=== PATIENT | female | born 1990 | race Caucasian/White ===

== ENCOUNTER 2017-02-21 14:34 | Emergency (ER) | payer BC ==
[2017-02-21 16:20] LABS: Hematocrit 39 % (35-47); Hemoglobin 12.8 g/dl (12.0-16.0); Mean Corpuscular HGB Conc 33 g/dl (31-36); Mean Corpuscular Hemoglobin 30 pg (27-31); Mean Corpuscular Volume 89 fL (80-97); Mean Platelet Volume 8 um3 (7.4-10.4); Red Blood Count 4.33 10^6/ul (4.0-5.4); Red Cell Distribution Width 14 % (10.5-15)
[2017-02-21 16:31] LABS: Albumin 4.4 g/dL (3.2-5.2); BUN/Creatinine Ratio 14.3 (8-20); Calcium 9.3 mg/dL (8.6-10.3); EGFR African American 148.1 (>60); EGFR Non-African American 115.1 (>60); Globulin 3.2 g/dL (2-4); Total Bilirubin 0.4 mg/dL (0.2-1.0); Total Protein 7.6 g/dL (6.4-8.9)
[2017-02-21 18:13] LABS: C Reactive Protein 8.67 mg/L (< 5.00)
--- NOTE | 2017-02-21 18:48 | RAD ---
INDICATION: 26-year-old patient. Right flank pain. COMPARISON: None TECHNIQUE: Longitudinal and transverse scans of the kidneys were obtained. FINDINGS: Right kidney: The right kidney is normal in size and echogenicity. No renal masses, calculi, or hydronephrosis is seen. The right kidney measures 13.3 x 4.4 x 6.1 cm. Other: None IMPRESSION: NORMAL RIGHT RENAL SONOGRAM.
--- NOTE | 2017-02-21 18:50 | RAD ---
INDICATION: Early with right-sided pain COMPARISON: Right renal sonogram same date TECHNIQUE: Transabdominal imaging was performed for the purposes of evaluation. The patient declined transvaginal imaging. FINDINGS: There is a single intrauterine gestation with confirmation of movement and cardiac activity. The cardiac activity is documented at 170 bpm. The pole corresponds to a 9 week 1 day gestation. The estimated date of delivery is September 23, 2017. There is no evidence of subchorionic hemorrhage. The left ovary is not identified. The right ovary appears normal measuring 3.4 x 1.8 x 2.3 cm. IMPRESSION: INTRAUTERINE GESTATION AT 9 WEEKS 1 DAY WITH CONFIRMATION OF CARDIAC ACTIVITY.
[2017-02-21 19:01] LABS: Urine Bacteria 2+ (Absent); Urine Bilirubin Negative (Negative); Urine Glucose Negative (Negative); Urine Nitrite Negative (Negative)
[2017-02-21 19:51] VITALS: BP 126/69
--- NOTE | 2017-02-22 00:38 | ED ---
Matias Carrera Salem, scribed for Anival Alvarenga MD on 02/21/17 at 1737 . Abdominal Pain/Female - HPI Summary HPI Summary: Patient is a 26 y/o F who presents to the ED with constant dull and achy RLQ pain since this morning. Pt is approximately 9.5 weeks (LMP on December 18, 2016 and due on September 23, 2016.) She saw her [employer] 5 days ago for her regular checkup and had an US that was negative. Pt called [employer] today for sx and they pointed to her hx of kidney stone. She was able to urinate today. Pt also took Tylenol with little alleviation. Sx is not aggravated or alleviated with anything. - History of Current Complaint Chief Complaint: EDAbdPain Stated Complaint: PAIN IN RT LOWER ABD/9 1/2 WEEKS PREG Time Seen by Provider: 02/21/17 17:17 Hx Obtained From: Patient Onset/Duration: Gradual Onset, Lasting Hours, Still Present Timing: Constant Severity Initially: Moderate Severity Currently: Moderate Pain Intensity: 6 Pain Scale Used: 0-10 Numeric Location: Discrete At: RLQ Radiates: No Character: Dull, Other: - Achy. Aggravating Factor(s): Nothing Alleviating Factor(s): Nothing Associated Signs and Symptoms: Positive: Negative Allergies/Adverse Reactions: Allergies Allergy/AdvReac Type Severity Reaction Status Date / Time Amoxicillin Allergy Hives Verified 02/21/17 17:09 Latex Allergy Hives Verified 02/21/17 17:09 PMH/Surg Hx/FS Hx/Imm Hx Previously Healthy: Yes Infectious Disease History: No Infectious Disease History: Denies: Traveled Outside the [place] in Last 30 Days - Family History Known Family History: Positive: Other - Ovarian CA. - Social History Alcohol Use: None Hx Substance Use: No Substance Use Type: Reports: None Hx Tobacco Use: Yes Smoking Status (MU): Former Smoker Review of Systems Negative: Fever Positive: Abdominal Pain - RLQ. Positive: other - Urination unchanged. All Other Systems Reviewed And Are Negative: Yes Physical Exam Triage Information Reviewed: Yes Vital Signs On Initial Exam: Initial Vitals Temp Pulse Resp BP Pulse Ox 98.1 F 113 18 137/80 100 02/21/17 14:39 02/21/17 14:39 02/21/17 14:39 02/21/17 14:39 02/21/17 14:39 Vital Signs Reviewed: Yes Appearance: Positive: Well-Appearing, No Pain Distress, Obese Skin: Positive: Warm, Skin Color Reflects Adequate Perfusion, Dry Head/Face: Positive: Normal Head/Face Inspection Eyes: Positive: Normal ENT: Positive: Normal ENT inspection Neck: Positive: Supple, Nontender Respiratory/Lung Sounds: Positive: Clear to Auscultation, Breath Sounds Present Cardiovascular: Positive: RRR Abdomen Description: Positive: Soft, Other: - Mild RLQ tenderness. Bowel Sounds: Positive: Present Musculoskeletal: Positive: Normal Neurological: Positive: Normal Psychiatric: Positive: Normal, Affect/Mood Appropriate - [place] Coma Scale Coma Scale Total: 15 Diagnostics - Vital Signs Vital Signs Temp Pulse Resp BP Pulse Ox 02/21/17 17:09 83 99 02/21/17 17:07 125/68 02/21/17 15:59 97.8 F 76 16 138/96 100 02/21/17 14:39 98.1 F 113 18 137/80 100 - Laboratory Lab Results: Lab Results 02/21/17 02/21/17 Range/Units 16:06 16:06 WBC 11.0 H (3.5-10.8) 10^3/ul RBC 4.33 (4.0-5.4) 10^6/ul Hgb 12.8 (12.0-16.0) g/dl Hct 39 (35-47) % MCV 89 (80-97) fL MCH 30 (27-31) pg MCHC 33 (31-36) g/dl RDW 14 (10.5-15) % Plt Count 343 (150-450) 10^3/ul MPV 8 (7.4-10.4) um3 Neut % (Auto) 67.7 (38-83) % Lymph % (Auto) 23.7 L (25-47) % [place] % (Auto) 6.5 (1-9) % Eos % (Auto) 1.3 (0-6) % Baso % (Auto) 0.8 (0-2) % Absolute Neuts (auto) 7.5 (1.5-7.7) 10^3/ul Absolute Lymphs (auto) 2.6 (1.0-4.8) 10^3/ul Absolute Monos (auto) 0.7 (0-0.8) 10^3/ul Absolute Eos (auto) 0.1 (0-0.6) 10^3/ul Absolute Basos (auto) 0.1 (0-0.2) 10^3/ul Absolute Nucleated RBC 0.01 10^3/ul Nucleated RBC % 0 Sodium 133 (133-145) mmol/L Potassium 4.0 (3.5-5.0) mmol/L Chloride 103 (101-111) mmol/L Carbon Dioxide 23 (22-32) mmol/L Anion Gap 7 (2-11) mmol/L BUN 9 (6-24) mg/dL Creatinine 0.63 (0.51-0.95) mg/dL Est GFR ( Amer) 148.1 (>60) Est GFR (Non-Af Amer) 115.1 (>60) BUN/Creatinine Ratio 14.3 (8-20) Glucose 86 (70-100) mg/dL Calcium 9.3 (8.6-10.3) mg/dL Total Bilirubin 0.40 (0.2-1.0) mg/dL AST 13 (13-39) U/L ALT 52 (7-52) U/L Alkaline Phosphatase 52 (34-104) U/L Total Protein 7.6 (6.4-8.9) g/dL Albumin 4.4 (3.2-5.2) g/dL Globulin 3.2 (2-4) g/dL Albumin/Globulin Ratio 1.4 (1-3) Result Diagrams: 02/21/17 16:06 02/21/17 16:06 Lab Statement: Any lab studies that have been ordered have been reviewed, and results considered in the medical decision making process. - Ultrasound No standard instances Ultrasound Interpretation Completed By: Radiologist - RENAL IMPRESSION: NORMAL RIGHT RENAL SONOGRAM. IMPRESSION: INTRAUTERINE GESTATION AT 9 WEEKS 1 DAY WITH CONFIRMATION OF CARDIAC ACTIVITY. Abdominal Pain Fem Course/Dx - Course Course Of Treatment: Ms. Tanner has RLQ pain that is dull with episodes of cramping. It has been going on for hours at this point. Her WBC's were 11, CRP 8 and U/A showed a contaminated picture with a few WBC's, bacteria and squamous dells. U/s of her ovary and baby was fine as was a renal u/s. I'm not sure what has caused her pain which is a bit better now. It could be an early appendicitis, a kidney stone or even an intermittent torsion as well as other causes. I recommended close F/U and I think she is safe to go home tonight. - Diagnoses Provider Diagnoses: Abdominal pain Discharge - Discharge Plan Condition: Stable Disposition: HOME Prescriptions: HYDROcodone/ACETAMIN 5-325 MG* [[place] 5-325 TAB*] 1 tab PO Q6H PRN #20 tab MDD 4 PRN Reason: Pain Patient Education Materials: Abdominal Pain (ED) Referrals: Lorena Galvez MD [Medical Doctor] - Additional Instructions: Please follow up with Dr. Galvez in 2-3 days if sx have not improved. The documentation as recorded by the Matias rosa Salem accurately reflects the service I personally performed and the decisions made by me, Anival Alvarenga MD.
== END 2017-02-21 19:53 | disposition home or self-care (01) ==
LOC: ED 14:34
DX: R10.31 Right lower quadrant pain (principal); Z87.891 Personal history of nicotine dependence
CPT/HCPCS: 36415; 76775; 76801; 80053; 81003; 81015; 84702; 85025; 86140; 87086; 99282

== ENCOUNTER 2017-05-08 21:37 | Emergency (ER) | payer BC, OTHER ==
[2017-05-08 22:39] LABS: Urine Bacteria 1+ (Absent); Urine Bilirubin Negative (Negative); Urine Glucose Negative (Negative); Urine Nitrite Negative (Negative)
--- NOTE | 2017-05-09 00:04 | ED ---
Bobby Carrera Rebecca, scribed for Sebastien Jansen MD on 05/08/17 at 2201 . - HPI Summary HPI Summary: Pt is a 26 y/o F who is 20 weeks who presents to ED c/o abdominal pain for about one hour. Pain is characterized as cramping and pressure and characterized as mild, ranked 1/10. Sx aggravated and alleviated by nothing. Denies vaginal bleeding or discharge. Pt is being followed by a perinatologist in [place] due to her short cervix. - History of Current Complaint Chief Complaint: EDAbdPain Stated Complaint: 20WKS PREG/CRAMPING/PRESSURE Time Seen by Provider: 05/08/17 21:58 Hx Obtained From: Patient Chief Complaint: Pain Onset/Duration: Still Present Current Severity: Mild Pain Intensity: 1 Character: Cramping, Other: - Pressure Aggravating Factors: Nothing Alleviating Factors: Nothing Associated Signs and Symptoms: Positive: Negative. Negative: Vaginal Bleeding or Discharge - Allergies/Home Medications Allergies/Adverse Reactions: Allergies Allergy/AdvReac Type Severity Reaction Status Date / Time Amoxicillin Allergy Hives Verified 02/21/17 17:09 Latex Allergy Hives Verified 02/21/17 17:09 PMH/Surg Hx/FS Hx/Imm Hx Respiratory History: Reports: Hx Seasonal Allergies History: Reports: Hx Kidney Stones, Other Problems/Disorders - Hx PCOS Infectious Disease History: No Infectious Disease History: Denies: Traveled Outside the [place] in Last 30 Days - Family History Known Family History: Positive: Other - Ovarian CA. - Social History Alcohol Use: None Hx Substance Use: No Substance Use Type: Reports: None Hx Tobacco Use: Yes Smoking Status (MU): Former Smoker Review of Systems Positive: Abdominal Pain Positive: other - NEGATIVE: vaginal bleeding. Negative: discharge All Other Systems Reviewed And Are Negative: Yes Physical Exam - Physical Exam Triage Information Reviewed: Yes Vital Signs Reviewed: Yes Appearance: Positive: Well-Appearing, No Pain Distress Skin: Positive: Warm Head/Face: Positive: Normal Head/Face Inspection Eyes: Positive: ALEKSANDER ENT: Positive: Hearing grossly normal Neck: Positive: Supple Respiratory/Lung Sounds: Positive: Clear to Auscultation Cardiovascular: Positive: RRR Abdomen Description: Positive: Nontender, Soft Bowel Sounds: Positive: Present - gravid Musculoskeletal: Positive: Normal Neurological: Positive: Alert, Oriented to Person Place, Time Psychiatric: Positive: Affect/Mood Appropriate Diagnostics - Vital Signs Vital Signs Temp Pulse Resp BP Pulse Ox 05/08/17 21:43 98.5 F 103 16 123/79 100 05/08/17 21:40 97.7 F 103 16 99 - Laboratory Lab Statement: Any lab studies that have been ordered have been reviewed, and results considered in the medical decision making process. Re-Evaluation - Re-Evaluation First Eval Re-Evaluation Time: 00:04 Change: Improved Comment: Discussed D/C plan with the pt. pt placed on monitpr, evauated by L&D nurses Course/Dx - Course Assessment/Plan: Pt is a 26 y/o F who is 20 weeks who presents to ED c/ o abdominal pain for about one hour. Pain is characterized as cramping and pressure and characterized as mild, ranked 1/10. Sx aggravated and alleviated by nothing. Denies vaginal bleeding or discharge. Pt is being followed by a perinatologist in [place] due to her short cervix. There was continuous monitoring while in the ED. UA negative for UTI. Pt will be D/C to home with Dx of abdominal pain during with a follow up with her PCP. She understands and agrees. - Diagnoses Provider Diagnoses: Abdominal pain during Discharge - Discharge Plan Condition: Stable Disposition: HOME Patient Education Materials: Abdominal Pain in (ED) Referrals: Alex HARDY,Jonathan Driver [Primary Care Provider] - 2 Days The documentation as recorded by the Bobby rosa Rebecca accurately reflects the service I personally performed and the decisions made by me, Sebastien Jansen MD.
[2017-05-09 00:13] VITALS: BP 111/65
== END 2017-05-09 00:14 | disposition home or self-care (01) ==
LOC: ED 21:37
DX: O26.892 Other specified pregnancy related conditions, second trimester (principal); Z3A.20 20 weeks gestation of pregnancy
CPT/HCPCS: 81003; 81015; 87086; 99282

== ENCOUNTER → 2017-08-01 00:50 | Emergency (ER) | payer OTHER ==
[2017-08-01 00:57] VITALS: BP 102/57
== END | disposition left against medical advice (07) ==
LOC: ED 00:50
DX: R10.9 Unspecified abdominal pain (principal); Z53.21 Procedure and treatment not carried out due to patient leaving prior to being seen by health care provider

== ENCOUNTER 2018-01-01 20:36 | Emergency (ER) | payer SELFPAY ==
[2018-01-01] MEDS ORDERED: NS 0.9% 1000 ML* 1,000 ML IV ONE (21:24)
[2018-01-01 22:06] LABS: ABS Basophils 0.1 10^3/ul (0-0.2); ABS Eosinophils 0.4 10^3/ul (0-0.6); ABS Lymphocytes 3.1 10^3/ul (1.0-4.8); ABS Monocytes 0.6 10^3/ul (0-0.8); ABS Neutrophils 4.1 10^3/ul (1.5-7.7); ABS Nucleated RBC 0 10^3/ul; Eosinophil % 5.1 % (0-6); Hematocrit 38 % (35-47); Hemoglobin 13.1 g/dl (12.0-16.0); Lymphocyte % 37.1 % (25-47); Mean Corpuscular HGB Conc 35 g/dl (31-36); Mean Corpuscular Hemoglobin 30 pg (27-31); Mean Corpuscular Volume 85 fL (80-97); Mean Platelet Volume 7.7 um3 (7.4-10.4); Nucleated Red Blood Cells % 0.1; Platelet Count 364 10^3/ul (150-450); Red Blood Count 4.44 10^6/ul (4.0-5.4); Red Cell Distribution Width 16 % (10.5-15); White Blood Count 8.3 10^3/ul (3.5-10.8)
[2018-01-01 22:21] LABS: INR 0.84 (0.77-1.02); Urine Appearance Clear; Urine Blood 2+ (Negative); Urine Color Straw; Urine Ketones Negative (Negative); Urine Protein Negative (Negative); Urine Specific Gravity 1.012 (1.010-1.030); Urine Urobilinogen Negative (Negative)
[2018-01-01 22:23] LABS: EGFR Non-African American 99.5 (>60)
[2018-01-01 23:22] VITALS: BP 0/0
--- NOTE | 2018-01-01 23:23 | ED ---
Erna Carrera Gabriel, scribed for Oc Haro on 01/01/18 at 2125 . Abdominal Pain/Female - HPI Summary HPI Summary: This patient is a 27 year old F presenting to [facility] accompanied by her partner with a chief complaint of RLQ that began at 1700 and has been getting worse. The patient rates the pain 6/10 in severity. Patient reports vaginal bleeding. Patient denies n/v and hematuria. - History of Current Complaint Chief Complaint: EDAbdPain Stated Complaint: ABD PAIN Time Seen by Provider: 01/01/18 21:18 Hx Obtained From: Patient Onset/Duration: Lasting Days, Still Present Timing: Constant Severity Initially: Moderate Severity Currently: Moderate Pain Intensity: 6 Pain Scale Used: 0-10 Numeric Location: Discrete At: RLQ Radiates: No Associated Signs and Symptoms: Positive: Vaginal Bleeding. Negative: Nausea, Vomiting Allergies/Adverse Reactions: Allergies Allergy/AdvReac Type Severity Reaction Status Date / Time amoxicillin Allergy Hives Verified 01/01/18 20:41 latex Allergy Hives Verified 01/01/18 20:41 PMH/Surg Hx/FS Hx/Imm Hx Respiratory History: Reports: Hx Seasonal Allergies History: Reports: Hx Kidney Stones, Other Problems/Disorders - Hx PCOS Infectious Disease History: No Infectious Disease History: Denies: Traveled Outside the [place] in Last 30 Days - Family History Known Family History: Positive: Other - Ovarian CA. - Social History Lives: With Family Alcohol Use: None Hx Substance Use: No Substance Use Type: Reports: None Hx Tobacco Use: Yes Smoking Status (MU): Former Smoker Review of Systems Positive: Abdominal Pain - RLQ . Negative: Vomiting, Nausea Genitourinary: Other - some vaginal bleeding Negative: hematuria All Other Systems Reviewed And Are Negative: Yes Physical Exam - Summary Physical Exam Summary: Appearance: Well appearing, no pain distress Skin: warm, dry, reflects adequate perfusion Head/face: normal Eyes: EOMI, ALEKSANDER ENT: normal Neck: supple, non-tender Respiratory: CTA, breath sounds present Cardiovascular: RRR, pulses symmetrical Abdomen: TTP in RLQ Bowel: present Musculoskeletal: normal, strength/ROM intact Neuro: normal, sensory motor intact, A&Ox3 Triage Information Reviewed: Yes Vital Signs On Initial Exam: Initial Vitals Temp Pulse Resp BP Pulse Ox 97.0 F 103 16 137/87 99 01/01/18 20:38 01/01/18 20:38 01/01/18 20:38 01/01/18 20:38 01/01/18 20:38 Vital Signs Reviewed: Yes Diagnostics - Vital Signs Vital Signs Temp Pulse Resp BP Pulse Ox 01/01/18 20:38 97.0 F 103 16 137/87 99 - Laboratory Lab Results: Lab Results 01/01/18 01/01/18 01/01/18 Range/Units 21:46 21:46 21:46 WBC 8.3 (3.5-10.8) 10^3/ul RBC 4.44 (4.0-5.4) 10^6/ul Hgb 13.1 (12.0-16.0) g/dl Hct 38 (35-47) % MCV 85 (80-97) fL MCH 30 (27-31) pg MCHC 35 (31-36) g/dl RDW 16 H (10.5-15) % Plt Count 364 (150-450) 10^3/ul MPV 7.7 (7.4-10.4) um3 Neut % (Auto) 49.1 (38-83) % Lymph % (Auto) 37.1 (25-47) % [place] % (Auto) 7.7 H (0-7) % Eos % (Auto) 5.1 (0-6) % Baso % (Auto) 1.0 (0-2) % Absolute Neuts (auto) 4.1 (1.5-7.7) 10^3/ul Absolute Lymphs (auto) 3.1 (1.0-4.8) 10^3/ul Absolute Monos (auto) 0.6 (0-0.8) 10^3/ul Absolute Eos (auto) 0.4 (0-0.6) 10^3/ul Absolute Basos (auto) 0.1 (0-0.2) 10^3/ul Absolute Nucleated RBC 0 10^3/ul Nucleated RBC % 0.1 INR (Anticoag Therapy) 0.84 (0.77-1.02) APTT 32.7 (26.0-36.3) seconds Sodium 141 (139-145) mmol/L Potassium 4.1 (3.5-5.0) mmol/L Chloride 106 (101-111) mmol/L Carbon Dioxide 27 (22-32) mmol/L Anion Gap 8 (2-11) mmol/L BUN 9 (6-24) mg/dL Creatinine 0.71 (0.51-0.95) mg/dL Est GFR ( Amer) 128.0 (>60) Est GFR (Non-Af Amer) 99.5 (>60) BUN/Creatinine Ratio 12.7 (8-20) Glucose 91 (70-100) mg/dL Lactic Acid (0.5-2.0) mmol/L Calcium 9.7 (8.6-10.3) mg/dL Total Bilirubin 0.20 (0.2-1.0) mg/dL AST 10 L (13-39) U/L ALT 30 (7-52) U/L Alkaline Phosphatase 63 (34-104) U/L Total Protein 7.7 (6.4-8.9) g/dL Albumin 4.6 (3.2-5.2) g/dL Globulin 3.1 (2-4) g/dL Albumin/Globulin Ratio 1.5 (1-3) Lipase 37 (11.0-82.0) U/L Beta HCG, Quant < 0.60 mIU/mL Urine Color Urine Appearance Urine pH (5-9) Ur Specific [place] (1.010-1.030) Urine Protein (Negative) Urine Ketones (Negative) Urine Blood (Negative) Urine Nitrate (Negative) Urine Bilirubin (Negative) Urine Urobilinogen (Negative) Ur Leukocyte Esterase (Negative) Urine WBC (Auto) (Absent) Urine RBC (Auto) (Absent) Urine Bacteria (Absent) Urine Glucose (Negative) 01/01/18 01/01/18 Range/Units 21:46 21:46 WBC (3.5-10.8) 10^3/ul RBC (4.0-5.4) 10^6/ul Hgb (12.0-16.0) g/dl Hct (35-47) % MCV (80-97) fL MCH (27-31) pg MCHC (31-36) g/dl RDW (10.5-15) % Plt Count (150-450) 10^3/ul MPV (7.4-10.4) um3 Neut % (Auto) (38-83) % Lymph % (Auto) (25-47) % [place] % (Auto) (0-7) % Eos % (Auto) (0-6) % Baso % (Auto) (0-2) % Absolute Neuts (auto) (1.5-7.7) 10^3/ul Absolute Lymphs (auto) (1.0-4.8) 10^3/ul Absolute Monos (auto) (0-0.8) 10^3/ul Absolute Eos (auto) (0-0.6) 10^3/ul Absolute Basos (auto) (0-0.2) 10^3/ul Absolute Nucleated RBC 10^3/ul Nucleated RBC % INR (Anticoag Therapy) (0.77-1.02) APTT (26.0-36.3) seconds Sodium (139-145) mmol/L Potassium (3.5-5.0) mmol/L Chloride (101-111) mmol/L Carbon Dioxide (22-32) mmol/L Anion Gap (2-11) mmol/L BUN (6-24) mg/dL Creatinine (0.51-0.95) mg/dL Est GFR ( Amer) (>60) Est GFR (Non-Af Amer) (>60) BUN/Creatinine Ratio (8-20) Glucose (70-100) mg/dL Lactic Acid 1.2 (0.5-2.0) mmol/L Calcium (8.6-10.3) mg/dL Total Bilirubin (0.2-1.0) mg/dL AST (13-39) U/L ALT (7-52) U/L Alkaline Phosphatase (34-104) U/L Total Protein (6.4-8.9) g/dL Albumin (3.2-5.2) g/dL Globulin (2-4) g/dL Albumin/Globulin Ratio (1-3) Lipase (11.0-82.0) U/L Beta HCG, Quant mIU/mL Urine Color Straw Urine Appearance Clear Urine pH 6.0 (5-9) Ur Specific [place] 1.012 (1.010-1.030) Urine Protein Negative (Negative) Urine Ketones Negative (Negative) Urine Blood 2+ A (Negative) Urine Nitrate Negative (Negative) Urine Bilirubin Negative (Negative) Urine Urobilinogen Negative (Negative) Ur Leukocyte Esterase Negative (Negative) Urine WBC (Auto) Trace(0-5/hpf) (Absent) Urine RBC (Auto) 3+(>10/hpf) A (Absent) Urine Bacteria 1+ A (Absent) Urine Glucose Negative (Negative) Result Diagrams: 01/01/18 21:46 01/01/18 21:46 Lab Statement: Any lab studies that have been ordered have been reviewed, and results considered in the medical decision making process. Re-Evaluation - Re-Evaluation First Eval Re-Evaluation Time: 22:38 Change: Worse Comment: Pt is refusing treatment and would like to sign out AMA. Abdominal Pain Fem Course/Dx - Course Course Of Treatment: This patient is a 27 year old F presenting to [facility] accompanied by her partner with a chief complaint of RLQ that began at 1700 and has been getting worse. The patient rates the pain 6/10 in severity. Patient reports vaginal bleeding. Patient denies n/v and hematuria. The patient refused IV access and all imagining. She would like to leave and will sign out AMA. She was advised to return to the ED if symptoms get worse. Dx abd pain r/ o appendicitis. Blood work and UA obtained. Patient will sign out AMA. - Diagnoses Differential Diagnosis: Positive: Appendicitis, Diverticulitis, , Renal Colic, Urinary Tract Infection Provider Diagnoses: Left against medical advice, Abdominal pain Discharge - Sign-Out/Discharge Documenting (check all that apply): Discharge/Admit/Transfer - AMA - Discharge Plan Condition: Fair Disposition: AGAINST MEDICAL ADVICE Referrals: Alex HARDY,Jonathan Driver [Primary Care Provider] - - Billing Disposition and Condition Condition: FAIR Disposition: AMA The documentation as recorded by the Erna rosa Gabriel accurately reflects the service I personally performed and the decisions made by , Oc Haro.
== END 2018-01-01 23:22 | disposition left against medical advice (07) ==
LOC: ED 20:36
DX: R10.31 Right lower quadrant pain (principal); Z87.891 Personal history of nicotine dependence; N93.9 Abnormal uterine and vaginal bleeding, unspecified; Z53.21 Procedure and treatment not carried out due to patient leaving prior to being seen by health care provider
CPT/HCPCS: 36415; 80053; 81003; 81015; 83605; 83690; 84702; 85025; 85610; 85730; 87086; 99283

== ENCOUNTER 2019-04-07 20:55 | Emergency (ER) | payer BC ==
[~2019-04-07 20:55] MED LIST: Thiamine IV 100 MG in NS 0.9% 50 ML Q24H IV ONE
[2019-04-07] MEDS ORDERED: NS 0.9% 1000 ML** 2,000 ML IV ONE (21:21)
[2019-04-07] MEDS ORDERED: Thiamine INJ* 100 MG/ML 2 ML VIAL IV ONE (21:21)
[2019-04-07] MEDS ORDERED: Ondansetron INJ* 2 MG/ML VIAL IV ONE (21:22)
--- NOTE | 2019-04-07 21:24 | ED ---
GI/ HPI - HPI Summary HPI Summary: This patient is a 28 year old F presenting to ED with a chief complaint of vomiting since 24 hours ago. Patient is 7 weeks and called her OB today who recommended she come here. Earlier in the , the patient reports only having nausea. Now the patient is vomiting and dizzy. She denies abdominal pain, diarrhea, contact to sick people, and eating bad food. This is her second , and she had similar morning sickness last time. Patient took Diclegis during her last , which helped, and her OB has now given her a new prescription. The patient rates the pain 0/10 in severity. Symptoms aggravated by nothing. Symptoms alleviated by nothing. - History of Current Complaint Chief Complaint: EDNauseaVomitDiarrh Time Seen by Provider: 04/07/19 21:17 Stated Complaint: NAUSEOUS AND LIGHT HEADED PER PT Hx Obtained From: Patient Onset/Duration: Started Hours Ago - 24 hours, Still Present Timing: Lasting Days - 24 hours Severity: Moderate Current Severity: None Pain Intensity: 0 Associated Signs and Symptoms: Positive: Dizziness, Nausea, Vomiting. Negative : Diarrhea, Abdominal Pain Aggravating Factor(s): Nothing Alleviating Factor(s): Nothing - Allergy/Home Medications Allergies/Adverse Reactions: Allergies Allergy/AdvReac Type Severity Reaction Status Date / Time amoxicillin Allergy Hives Verified 04/07/19 21:41 latex Allergy Hives Verified 04/07/19 21:41 Home Medications: Home Medications Progesterone 1 tab PO TID 04/07/19 [History Confirmed 04/07/19] PMH/Surg Hx/FS Hx/Imm Hx Endocrine/Hematology History: Reports: Hx Anemia Respiratory History: Reports: Hx Seasonal Allergies History: Reports: Hx Kidney Stones, Other Problems/Disorders - Hx PCOS Musculoskeletal History: Reports: Other Musculoskeletal History - L4-L5 disc bulge - Surgical History Surgery Procedure, Year, and Place: Dilation and curettage of uterus (11/2016). [place] revision cervix w preg, vag apprch (05/13/2017). Tonsillectomy Infectious Disease History: No Infectious Disease History: Denies: Traveled Outside the [place] in Last 30 Days - Family History Known Family History: Positive: Other - Ovarian CA. - Social History Alcohol Use: None Hx Substance Use: No Substance Use Type: Reports: None Hx Tobacco Use: Yes Smoking Status (MU): Former Smoker Review of Systems Positive: Vomiting, Nausea. Negative: Abdominal Pain, Diarrhea Neurological: Other - Dizziness All Other Systems Reviewed And Are Negative: Yes Physical Exam - Summary Physical Exam Summary: Appearance: Well-appearing, Well-nourished, lying in bed comfortable Skin: Warm, dry, no obvious rash Eyes: sclera anicteric, no conjunctival pallor ENT: mucous membranes moist Neck: deferred Respiratory: No signs of respiratory distress Cardiovascular: Appears well perfused, pulses are nml Abdomen: deferred Musculoskeletal: Moving all 4 extremities without obvious discomfort Neurological: Awake and alert, mentation is normal, speech is fluent and appropriate Psychiatric: affect is normal, does not appear anxious or depressed Triage Information Reviewed: Yes Vital Signs On Initial Exam: Initial Vitals Temp Pulse Resp BP Pulse Ox 97.9 F 85 18 140/87 98 04/07/19 20:56 04/07/19 20:56 04/07/19 20:56 04/07/19 20:56 04/07/19 20:56 Vital Signs Reviewed: Yes Diagnostics - Vital Signs Vital Signs Temp Pulse Resp BP Pulse Ox 04/07/19 20:56 97.9 F 85 18 140/87 98 - Laboratory Result Diagrams: 04/07/19 21:27 04/07/19 21:27 Lab Statement: Any lab studies that have been ordered have been reviewed, and results considered in the medical decision making process. GIGU Course/Dx - Course Course Of Treatment: This patient is a 28 year old F presenting to ED with a chief complaint of vomiting since 24 hours ago. Patient is 7 weeks and called her OB today who recommended she come here. In the ED course, patient received fluids, Zofran, and Vitamin B. Blood work revealed WBC 11.4, MCH 32, sodium 134. UA unremarkable. Patient will be discharged w dx of hyperemesis gravidarum and mild dehydration. Patient understands and agrees with this plan. - Diagnoses Provider Diagnoses: Hyperemesis gravidarum, Mild dehydration Discharge - Sign-Out/Discharge Documenting (check all that apply): Patient Departure - Discharge Patient Received Moderate/Deep Sedation with Procedure: No - Discharge Plan Condition: Improved Disposition: HOME Patient Education Materials: Hyperemesis Gravidarum (ED) Referrals: Alex HARDY,Jonathan Driver [Primary Care Provider] - Additional Instructions: Go ahead and fill the diclegis prescription and start taking that. Dietary changes can be helpful as well. - Billing Disposition and Condition Condition: IMPROVED Disposition: Home - Attestation Statements Document Initiated by Charlotte: Yes Documenting Scribe: Mikey Castanon Provider For Whom Charlotte is Documenting (Include Credential): Anival Crowe MD Scribe Attestation: Mikey Carrera, scribed for Anival Crowe MD on 04/08/19 at 0610. Scribe Documentation Reviewed: Yes Provider Attestation: The documentation as recorded by the Mikey rosa accurately reflects the service I personally performed and the decisions made by me, Anival Crowe MD Status of Scribe Document: Viewed
[2019-04-07 21:36] LABS: ABS Basophils 0.1 10^3/ul (0-0.2); ABS Eosinophils 0.2 10^3/ul (0-0.6); ABS Lymphocytes 2.5 10^3/ul (1.0-4.8); ABS Monocytes 0.8 10^3/ul (0-0.8); ABS Neutrophils 7.7 10^3/ul (1.5-7.7); Eosinophil % 2.2 %; Hematocrit 39 % (35-47); Hemoglobin 13.5 g/dL (12.0-16.0); Lymphocyte % 22.3 %; Mean Corpuscular HGB Conc 35 g/dL (31-36); Mean Corpuscular Hemoglobin 32 pg (27-31); Mean Corpuscular Volume 90 fL (80-97); Mean Platelet Volume 7.4 fL (7.4-10.4); Platelet Count 346 10^3/uL (150-450); Red Blood Count 4.28 10^6 /uL (3.70-4.87); Red Cell Distribution Width 14 % (10-15); White Blood Count 11.4 10^3/uL (3.5-10.8)
[2019-04-07 21:51] LABS: Urine Appearance Clear; Urine Bilirubin Negative (Negative); Urine Blood Negative (Negative); Urine Color Yellow; Urine Glucose Negative (Negative); Urine Ketones Negative (Negative); Urine Nitrite Negative (Negative); Urine Protein Negative (Negative); Urine Specific Gravity 1.025 (1.010-1.030); Urine Urobilinogen Negative (Negative)
[2019-04-07 21:52] LABS: BUN/Creatinine Ratio 12.3 (8-20); Calcium 9.1 mg/dL (8.6-10.3); EGFR African American 102.6 (>60); EGFR Non-African American 84.8 (>60); Magnesium 2.2 mg/dL (1.9-2.7); Potassium 3.9 mmol/L (3.5-5.0)
[2019-04-08 01:05] VITALS: BP 119/73
== END 2019-04-08 01:09 | disposition home or self-care (01) ==
LOC: ED 20:55
DX: O21.0 Mild hyperemesis gravidarum (principal); E86.0 Dehydration; Z3A.01 Less than 8 weeks gestation of pregnancy; Z88.0 Allergy status to penicillin; Z87.891 Personal history of nicotine dependence; Z91.040 Latex allergy status
CPT/HCPCS: 36415; 80048; 81003; 83735; 85025; 96361; 96365; 96366; 96375; 99284; J2405; J3411

== ENCOUNTER 2019-05-21 18:32 | Emergency (ER) | payer BC, OTHER ==
[2019-05-21] MEDS ORDERED: NS 0.9% 1000 ML** 2,000 ML IV ONE (21:14)
[2019-05-21] MEDS ORDERED: Metoclopramide IV* 5 MG/ML 2 ML VIAL IV ONE (21:15)
[2019-05-21 21:33] LABS: ABS Basophils 0.1 10^3/ul (0-0.2); ABS Eosinophils 0.1 10^3/ul (0-0.6); ABS Lymphocytes 2.1 10^3/ul (1.0-4.8); ABS Monocytes 0.5 10^3/ul (0-0.8); ABS Neutrophils 6.9 10^3/ul (1.5-7.7); Eosinophil % 1.5 %; Hematocrit 34 % (35-47); Hemoglobin 12.2 g/dL (12.0-16.0); Lymphocyte % 21.3 %; Mean Corpuscular HGB Conc 35 g/dL (31-36); Mean Corpuscular Hemoglobin 32 pg (27-31); Mean Corpuscular Volume 90 fL (80-97); Mean Platelet Volume 7.4 fL (7.4-10.4); Platelet Count 331 10^3/uL (150-450); Red Blood Count 3.81 10^6 /uL (3.70-4.87); Red Cell Distribution Width 14 % (10-15); White Blood Count 9.7 10^3/uL (3.5-10.8)
[2019-05-21 21:55] LABS: Urine Appearance Cloudy; Urine Bacteria 1+ (Absent); Urine Bilirubin Negative (Negative); Urine Blood 1+ (Negative); Urine Color Yellow; Urine Glucose Negative (Negative); Urine Ketones Negative (Negative); Urine Nitrite Negative (Negative); Urine Protein Negative (Negative); Urine Red Blood Cell 2+(6-10/hpf) (Absent); Urine Specific Gravity 1.019 (1.010-1.030); Urine Squamous Epithelial Cell Present (Absent); Urine Urobilinogen Negative (Negative); Urine White Blood Cell Trace(0-5/hpf) (Absent)
[2019-05-21 22:01] LABS: Albumin 4.2 g/dL (3.2-5.2); Albumin/Globulin Ratio 1.5 (1-3); Calcium 9.1 mg/dL (8.6-10.3); Globulin 2.8 g/dL (2-4); Potassium 3.6 mmol/L (3.5-5.0); Total Bilirubin 0.3 mg/dL (0.2-1.0)
--- NOTE | 2019-05-21 22:02 | ED ---
GI/ HPI - HPI Summary HPI Summary: Patient is a 28 y/o F who is 14 weeks who presents to [facility] with complaints of hyperemesis and abdominal cramping. She reports similar Sx with previous pregnancies and states that her present episode has been more severe than previous ones. She has been unable to keep any food down despite taking zofran. Urinary Sx are denied. On triage, pain is rated 4/10, nothing is noted to aggravate/alleviate Sx. Home medications and allergies are reviewed. - History of Current Complaint Chief Complaint: EDNauseaVomitDiarrh Time Seen by Provider: 05/21/19 21:15 Stated Complaint: CANT KEEP FOOD IN PER PT Hx Obtained From: Patient Onset/Duration: Still Present Timing: Constant Current Severity: Moderate Pain Intensity: 4 Pain Characteristics: Cramping Associated Signs and Symptoms: Positive: Vomiting, Abdominal Pain, Other: - no urinary Sx Aggravating Factor(s): Nothing Alleviating Factor(s): Nothing - Allergy/Home Medications Allergies/Adverse Reactions: Allergies Allergy/AdvReac Type Severity Reaction Status Date / Time amoxicillin Allergy Hives Verified 05/21/19 18:54 latex Allergy Hives Verified 05/21/19 18:54 zinc oxide Allergy Hives Verified 05/21/19 18:54 Home Medications: Home Medications Progesterone CAP (NF) [Prometrium (NF)] 200 mg PO TID 05/21/19 [History Confirmed 05/21/19] PMH/Surg Hx/FS Hx/Imm Hx Endocrine/Hematology History: Reports: Hx Anemia Respiratory History: Reports: Hx Seasonal Allergies History: Reports: Hx Kidney Stones, Other Problems/Disorders - Hx PCOS Musculoskeletal History: Reports: Other Musculoskeletal History - L4-L5 disc bulge - Surgical History Surgery Procedure, Year, and Place: Dilation and curettage of uterus (11/2016). [place] revision cervix w preg, vag apprch (05/13/2017). Tonsillectomy Infectious Disease History: No Infectious Disease History: Denies: Traveled Outside the [place] in Last 30 Days - Family History Known Family History: Positive: Other - Ovarian CA. - Social History Alcohol Use: None Hx Substance Use: No Substance Use Type: Reports: None Hx Tobacco Use: Yes Smoking Status (MU): Former Smoker Review of Systems Positive: Abdominal Pain - cramping , Vomiting Positive: no symptoms reported - no urinary Sx reported All Other Systems Reviewed And Are Negative: Yes Physical Exam - Summary Physical Exam Summary: Appearance: Well-appearing, Well-nourished, lying in bed comfortably Skin: Warm, dry, no obvious rash Eyes: sclera anicteric, no conjunctival pallor ENT: mucous membranes moist, pharynx appears normal Neck: Supple, nontender Respiratory: Clear to auscultation, no signs of respiratory distress Cardiovascular: Normal S1, S2. No murmurs. Normal distal pulses in tibial and radial bilaterally. Abdomen: Soft, nontender, normal active bowel sounds present Musculoskeletal: Normal, Strength/ROM Intact Neurological: A&Ox3, awake and alert, mentation is normal, speech is fluent and appropriate Psychiatric: affect is normal, does not appear anxious or depressed Triage Information Reviewed: Yes Vital Signs On Initial Exam: Initial Vitals Temp Pulse Resp BP Pulse Ox 98.9 F 96 18 134/83 99 05/21/19 18:51 05/21/19 18:51 05/21/19 18:51 05/21/19 18:51 05/21/19 18:51 Vital Signs Reviewed: Yes Procedures - Sedation Patient Received Moderate/Deep Sedation with Procedure: No Diagnostics - Vital Signs Vital Signs Temp Pulse Resp BP Pulse Ox 05/21/19 18:51 98.9 F 96 18 134/83 99 - Laboratory Lab Results: Lab Results 05/21/19 Range/Units 21:27 WBC 9.7 (3.5-10.8) 10^3/uL RBC 3.81 (3.70-4.87) 10^6 /uL Hgb 12.2 (12.0-16.0) g/dL Hct 34 L (35-47) % MCV 90 (80-97) fL MCH 32 H (27-31) pg MCHC 35 (31-36) g/dL RDW 14 (10-15) % Plt Count 331 (150-450) 10^3/uL MPV 7.4 (7.4-10.4) fL Neut % (Auto) 71.0 % Lymph % (Auto) 21.3 % [place] % (Auto) 5.4 % Eos % (Auto) 1.5 % Baso % (Auto) 0.8 % Absolute Neuts (auto) 6.9 (1.5-7.7) 10^3/ul Absolute Lymphs (auto) 2.1 (1.0-4.8) 10^3/ul Absolute Monos (auto) 0.5 (0-0.8) 10^3/ul Absolute Eos (auto) 0.1 (0-0.6) 10^3/ul Absolute Basos (auto) 0.1 (0-0.2) 10^3/ul Absolute Nucleated RBC 0.0 10^3/ul Nucleated RBC % 0.0 Result Diagrams: 05/21/19 21:27 05/21/19 21:27 Lab Statement: Any lab studies that have been ordered have been reviewed, and results considered in the medical decision making process. GIGU Course/Dx - Course Course Of Treatment: Patient is a 28 y/o F who is 14 weeks who presents to [facility] with complaints of hyperemesis and abdominal cramping. She reports similar Sx with previous pregnancies and states that her present episode has been more severe than previous ones. She has been unable to keep any food down despite taking zofran. Urinary Sx are denied. Physical exam was unremarkable. Bloodwork was obtained. Abnormal values include carbon dioxde 21, AST 6. UA showed 1+ blood, trace WBC, 2+ RBC, present squamous epith cells, 1+ bacteria. During ED course, patient received fluids and reglan 10 mg IV. Patient reported improvement in Sx after medications. She was discharged to home with prescription for Reglan and OB follow up. - Diagnoses Provider Diagnoses: Hyperemesis gravidarum Discharge ED - Sign-Out/Discharge Documenting (check all that apply): Patient Departure - discharge Patient Received Moderate/Deep Sedation with Procedure: No - Discharge Plan Condition: Improved Disposition: HOME Prescriptions: Metoclopramide TAB* [Reglan TAB*] 10 mg PO Q6H #20 tab Patient Education Materials: Hyperemesis Gravidarum (ED) Referrals: Alex HARDY,Jonathan Driver [Primary Care Provider] - Additional Instructions: Contact your OB for followup. Follow the instructions for dietary management, but you can also take the reglan if needed. - Billing Disposition and Condition Condition: IMPROVED Disposition: Home - Attestation Statements Document Initiated by Scribe: Yes Documenting Scribe: MICHELLE CHAPA Provider For Whom Scribe is Documenting (Include Credential): LAUREN LAL MD Scribe Attestation: IMICHELLE, scribed for LAUREN LAL MD on 07/11/19 at 1843. Scribe Documentation Reviewed: Yes Provider Attestation: The documentation as recorded by the yahiribeMICHELLE accurately reflects the service I personally performed and the decisions made by me, LAUREN LAL MD Status of Scribe Document: Viewed
[2019-05-21 22:23] LABS: EGFR African American 145.1 (>60); EGFR Non-African American 119.9 (>60)
[2019-05-22 00:16] VITALS: BP 116/74
== END 2019-05-22 00:14 | disposition home or self-care (01) ==
LOC: ED 18:32
DX: O21.0 Mild hyperemesis gravidarum (principal); Z3A.14 14 weeks gestation of pregnancy; R10.9 Unspecified abdominal pain; Z87.891 Personal history of nicotine dependence; Z87.442 Personal history of urinary calculi
CPT/HCPCS: 36415; 80053; 81003; 81015; 85025; 87086; 99282; J2765

== ENCOUNTER 2019-10-16 21:02 | Emergency (ER) | payer BC, OTHER ==
[2019-10-16] MEDS ORDERED: NS 0.9% 1000 ML** 1,000 ML IV ONE (21:37)
--- NOTE | 2019-10-16 21:44 | ED ---
Abdominal Pain/Female - HPI Summary HPI Summary: The patient is a 28-year-old female presenting to [facility] accompanied by with a chief complaint of RUQ pain onset this afternoon. She is currently 35 weeks gravid, and she notes a history of gallstones with her first ( A0). Her current pain is similar to previous episode. She has an incompetent cervix, but the has otherwise been uncomplicated. The pain , which is currently rated 8/10 in severity, radiates into the back and down the right side of the abdomen. She endorses nausea without vomiting, and she denies fever. No previous abdominal surgery. No liver issues. Her FUMIGATOR AND STERILIZER is aware she is here. Past medical history significant for anemia, seasonal allergies, kidney stones. Former smoker, no EtOH, no substance use. Medications reviewed. Allergies noted. - History of Current Complaint Chief Complaint: EDOBProblems Stated Complaint: ABD PAIN PER PT Time Seen by Provider: 10/16/19 21:28 Hx Obtained From: Patient Onset/Duration: Sudden Onset, Lasting Hours, Still Present Timing: Constant Severity Initially: Moderate Severity Currently: Severe Pain Intensity: 8 Pain Scale Used: 0-10 Numeric Location: Discrete At: RUQ Radiates: Yes Radiates to: Back, Other - along right side of abdomen Character: Sharp Aggravating Factor(s): Nothing Alleviating Factor(s): Nothing Associated Signs and Symptoms: Positive: Nausea. Negative: Fever, Vomiting Allergies/Adverse Reactions: Allergies Allergy/AdvReac Type Severity Reaction Status Date / Time amoxicillin Allergy Hives Verified 05/21/19 18:54 latex Allergy Rash Verified 10/05/19 14:29 Penicillins Allergy Hives Verified 10/05/19 14:29 zinc oxide Allergy Hives Verified 05/21/19 18:54 PMH/Surg Hx/FS Hx/Imm Hx Endocrine/Hematology History: Reports: Hx Anemia Respiratory History: Reports: Hx Seasonal Allergies Denies: Hx Asthma GI History: Reports: Hx Gall Bladder Disease - gallstones with first History: Reports: Hx Kidney Stones, Other Problems/Disorders - hx kidney stones Musculoskeletal History: Reports: Other Musculoskeletal History - L4-L5 disc bulge - Surgical History Surgical History: Yes Surgery Procedure, Year, and Place: Dilation and curettage of uterus (11/2016). [place] revision cervix w preg, vag apprch (05/13/2017). Tonsillectomy Infectious Disease History: No Infectious Disease History: Denies: Traveled Outside the [place] in Last 30 Days - Family History Known Family History: Positive: Other - Ovarian CA. - Social History Alcohol Use: None Hx Substance Use: No Substance Use Type: Reports: None Hx Tobacco Use: Yes Smoking Status (MU): Former Smoker Type: Cigarettes Have You Smoked in the Last Year: No Review of Systems Negative: Fever Positive: Abdominal Pain - RUQ, Nausea. Negative: Vomiting All Other Systems Reviewed And Are Negative: Yes Physical Exam - Summary Physical Exam Summary: Constitutional: Well-developed, Well-nourished, Alert. (-) Distressed Skin: Warm, Dry HENT: Normocephalic; Atraumatic Eyes: Conjunctiva normal Neck: Musculoskeletal ROM normal neck. (-) JVD, (-) Stridor, (-) Tracheal deviation Cardio: Rhythm regular, rate normal, Heart sounds normal; Intact distal pulses; The pedal pulses are 2+ and symmetric. Radial pulses are 2+ and symmetric. (-) Murmur Pulmonary/Chest wall: Effort normal. (-) Respiratory distress, (-) Wheezes, (-) Rales Abd: Soft, (+) RUQ tenderness, Gravid, (-) Distension, (-) Guarding, (-) Rebound Musculoskeletal: (-) Edema Lymph: (-) Cervical adenopathy Neuro: Alert, Oriented x3 Psych: Mood and affect Normal Triage Information Reviewed: Yes Vital Signs On Initial Exam: Initial Vitals Temp Pulse Resp BP Pulse Ox 98.0 F 82 18 137/79 98 10/16/19 21:04 10/16/19 21:04 10/16/19 21:04 10/16/19 21:04 10/16/19 21:04 Vital Signs Reviewed: Yes Procedures - Sedation Patient Received Moderate/Deep Sedation with Procedure: No Diagnostics - Vital Signs Vital Signs Temp Pulse Resp BP Pulse Ox 10/16/19 21:04 98.0 F 82 18 137/79 98 - Laboratory Result Diagrams: 10/16/19 21:43 10/16/19 21:43 Lab Statement: Any lab studies that have been ordered have been reviewed, and results considered in the medical decision making process. Abdominal Pain Fem Course/Dx - Course Course Of Treatment: 28 y/o female who is 35 weeks gravid ( A0) presenting with RUQ pain radiating into the back and along the right side of the abdomen tonight, with history of gallstones during first with similar presentation. She endorses nausea without vomiting, fever. Incompetent cervix but otherwise normal . Physical exam reveals soft, gravid abdomen with RUQ tenderness. IV access obtained. Patient administered fluids. Blood work reveals slight anemia, AST of 7, and alkaline phosphatase of 109. The patient is a sign-out from Dr. Saul Alexander DO, to Dr. Cliff Serna MD, at change of shift at 2200 on 10/16/19, pending HR, Gallbladder US, and disposition. - Diagnoses Provider Diagnoses: RUQ pain Discharge ED - Sign-Out/Discharge Documenting (check all that apply): Sign-Out Patient Signing out patient TO: Cliff Serna - Patient is a sign-out to Dr. Cliff Serna MD, at change of shift at 2200 on 10/16/19, pending HR, Gallbladder US, and disposition. - Discharge Plan Condition: Stable Disposition: HOME Patient Education Materials: Acute Abdominal Pain (ED) Referrals: Alex HARDY,Jonathan Driver [Primary Care Provider] - Additional Instructions: FOLLOW UP WITH YOUR PRIMARY CARE PROVIDER WITHIN ONE WEEK. RETURN TO THE ED FOR ANY WORSENING OR NEW SYMPTOMS. - Billing Disposition and Condition Condition: STABLE Disposition: Home - Attestation Statements Document Initiated by Charlotte: Yes Documenting Scribe: Lucia Lyn Provider For Whom Feliciaibe is Documenting (Include Credential): Dr. Saul Alexander DO Scribe Attestation: Lucia Carrera scribed for Dr. Saul Alexander DO on 10/17/19 at 1053. Scribe Documentation Reviewed: Yes Provider Attestation: The documentation as recorded by the Lucia rosa accurately reflects the service I personally performed and the decisions made by me, Dr. Saul Alexander DO Status of Scribjenny Document: Viewed
[2019-10-16 21:55] LABS: ABS Basophils 0.1 10^3/ul (0-0.2); ABS Eosinophils 0.1 10^3/ul (0-0.6); ABS Lymphocytes 1.9 10^3/ul (1.0-4.8); ABS Monocytes 0.8 10^3/ul (0-0.8); ABS Neutrophils 6.8 10^3/ul (1.5-7.7); Eosinophil % 1.2 %; Hematocrit 32 % (35-47); Hemoglobin 11.2 g/dL (12.0-16.0); Lymphocyte % 19.3 %; Mean Corpuscular HGB Conc 35 g/dL (31-36); Mean Corpuscular Hemoglobin 31 pg (27-31); Mean Corpuscular Volume 87 fL (80-97); Mean Platelet Volume 7.8 fL (7.4-10.4); Platelet Count 332 10^3/uL (150-450); Red Blood Count 3.62 10^6 /uL (3.70-4.87); Red Cell Distribution Width 14 % (10-15); White Blood Count 9.7 10^3/uL (3.5-10.8)
[2019-10-16 22:13] LABS: Albumin 3.8 g/dL (3.2-5.2); Albumin/Globulin Ratio 1.2 (1-3); BUN/Creatinine Ratio 12.7 (8-20); Calcium 9.5 mg/dL (8.6-10.3); EGFR African American 160.4 (>60); EGFR Non-African American 132.6 (>60); Globulin 3.3 g/dL (2-4); Potassium 3.6 mmol/L (3.5-5.0); Total Bilirubin 0.2 mg/dL (0.2-1.0); Total Protein 7.1 g/dL (6.4-8.9)
--- NOTE | 2019-10-16 22:52 | ED ---
Progress - Progress Note Progress Note: This patient was signed out from upon shift change on 10/16/2019 at 2200, pending HR, gallblader US, and disposition. Pt will be discharged. Diagnoses of RUQ pain. Gallbladder US reveals: There is gallbladder sludge and echogenic calculi consistent with cholelithiasis with no abnormal gallbladder wall thickening but moderate gallbladder distension and positive sonographic Perez sign, suspicious for acute cholecystitis. Course/Dx - Course Course Of Treatment: This patient was signed out by Dr. Young at shift change. He reports that the patient is a 28-year-old female, 35 weeks . She presents with right upper quadrant tenderness. He thinks that the patient has biliary colic. Blood work and right upper quadrant ultrasound pending. Blood work without any significant abnormality except for slight anemia, hemoglobin 11.2 and hematocrit 32. Glucose is 101, and alkaline phosphatase is 109. Right upper quadrant ultrasound impression: Gallbladder sludge and echogenic calculi consistent with cholelithiasis with no abnormal gallbladder wall thickening by mother with gallbladder distention and positive sonographic Perez s sign, suspicion for acute cholecystitis. I examined the patient and the patients symptoms have resolved. Patient reports that she no longer has abdominal pain. She reports that she drank some milk last night and she develops the symptoms. She reports that she prefers to go home and she will follow-up with her surgeon who has seen in the past. Patient is hemodynamically stable alert oriented 3. Patient is hemodynamically stable. Plan of care was discussed with the patient and understands and agrees. All questions were answered at patient satisfaction. There were no further complaints or concerns. Lung exam before discharge: CTA B/L. Good air exchange. No wheezing or crackles heard. CVS: S1 and S2 present. No murmurs appreciated. Patient is alert and oriented x 3. Patient is hemodynamically stable. Patient will be discharged home with follow up PCP in the next 2-3 days. - Diagnoses Provider Diagnoses: RUQ pain Discharge ED - Sign-Out/Discharge Documenting (check all that apply): Patient Departure - discharge - Discharge Plan Condition: Stable Disposition: HOME Patient Education Materials: Acute Abdominal Pain (ED) Referrals: Alex HARDY,Jonathan Driver [Primary Care Provider] - Additional Instructions: FOLLOW UP WITH YOUR PRIMARY CARE PROVIDER WITHIN ONE WEEK. RETURN TO THE ED FOR ANY WORSENING OR NEW SYMPTOMS. - Billing Disposition and Condition Condition: STABLE Disposition: Home - Attestation Statements Document Initiated by Scribe: Yes Documenting Scribe: Jared Akbar Provider For Whom Charlotte is Documenting (Include Credential): Dr.Walter Kareem MD Scribe Attestation: IJared, scribed for Dr.Walter Kareem MD on 10/18/19 at 2057. Scribe Documentation Reviewed: Yes Provider Attestation: The documentation as recorded by the Jared rosa accurately reflects the service I personally performed and the decisions made by me, Dr.Walter Kareem MD Status of Scribe Document: Viewed
[2019-10-16 23:29] VITALS: BP 127/80
== END 2019-10-16 23:28 | disposition home or self-care (01) ==
LOC: ED 21:02
DX: R10.11 Right upper quadrant pain (principal); R11.0 Nausea; Z88.0 Allergy status to penicillin; Z87.442 Personal history of urinary calculi; Z87.891 Personal history of nicotine dependence
CPT/HCPCS: 36415; 76705; 80053; 83690; 85025; 99282

== ENCOUNTER 2019-11-14 08:05 | Inpatient (IN) | payer BC ==
[2019-11-14] MEDS ORDERED: Buffered Lidocaine 1% SYRIN* 1 ML/SYRINGE INTRADERM ONE (08:33)
[2019-11-14] MEDS ORDERED: Lactated Ringers 1000 ML Bag* 1,000 ML IV ONE ×2 (08:33→16:37)
--- NOTE | 2019-11-14 08:41 | HP ---
General Information - Reason for Visit IOL at term, IUGR - General Information Maternal Age: 29 Grav: 2 Para: 1 SAB: 0 IEA: 0 Estimated Due Date: 11/19/19 Determined By: LMP Gestational Age in Weeks/Days: 39w2d Maternal Blood Type and Rh: O Positive - Results this Serology/RPR Result: Non-Reactive Rubella Result: Immune HBsAg Result: Negative HIV Result: Negative GBS Culture Result: Negative Past Medical History Delivery History: Hx Complicated Vaginal Delivery - PTL and Delivery with PPROM at 30 weejs Pertinent Past Medical History: See Records Pertinent Past Surgical History: See Records Pertinent Family History: See Records - Antepartal Records Antepartal Records: Reviewed, Complicated by: - IUGR, Hx of PPPROM and PTD in prior gestation, [place]age current gestation,Obesity, insufficient FF on NIPT x 2; increased risk genetic abnormalities Review of Systems Constitutional: Comfortable CV Complaint: No Respiratory: Shortness of Breath: No Gastrointestinal: No Nausea/Vomiting, Normal Bowel Movement Genitourinary: No Dysuria, No Bleeding, No Leaking Fluid Musculoskeletal: No Complaint, No Epigastric Pain Neurological: No Headache, No Visual Changes Movement: Normal Exam Allergies/Adverse Reactions: Allergies amoxicillin Allergy (Verified 05/21/19 18:54) Hives latex Allergy (Verified 10/05/19 14:29) Rash Penicillins Allergy (Verified 10/05/19 14:29) Hives zinc oxide Allergy (Verified 05/21/19 18:54) Hives T 98.5 P 127 RR 18 BP 108/82 O2 sat 100% - Measurements Height: 5 ft 2 in Weight: 206 lb Body Mass Index (BMI): 37.6 Pre- Weight: 218 lb - Exam Breast: Breast Exam Deferred CVA: No CVA Tenderness Extremities: No Edema Heart: Normal Rhythm/Heart Sounds HEENT: No Significant Findings Lungs: Clear Bilaterally Rectal: Rectal Exam Deferred Reflexes: DTR 2+ Thyroid: No Thyromegaly - Abdominal Exam Abdomen Exam: Non-Tender - Ultrasound/Biophysical Profile Ultrasound Status: Not Done Targeted Exam Findings Estimated Weight: 6#1oz Cervical Exam: 3cm Effacement: 60% Station: -2 Presenting Part: Vertex Membrane Status: Intact Bleeding/Discharge: None EFM Findings - External Monitor Findings Baseline Heart Rate: 145 External Monitor Findings: Accelerations Present, No Pattern of Variable or Late Decelerations, Variability Moderate, Baseline Stable Contractions: None Assessment/Plan - Assessment 29 y/o at 39w2d, here for IOL in the context of term gestation with IUGR - IUGR - Most recent USN EFW at 11%, normal dopplers, BPP 8/8 - Insufficent FF x 2 on NIPT, increased risk of genetic abnormalities, Declined amnio; remainder of screenings and USN's WNL - RH+/Rubella Immune - GBS Negative - Obstetrical Risk Factors Obstetrical Risk Factors: IUGR - Plan Plan: Induction, Admit - Anticipate Vaginal Delivery Plan Comment: Will start Pitocin Once kathia regularly with AROM - Date/Time of Admission Date of Admission: 11/14/19 Time of Admission: 08:30
[2019-11-14] MEDS ORDERED: Lactated Ringers 1000 ML Bag* 1,000 ML IV SCH ×3 (09:00→21:00)
[2019-11-14] MEDS ORDERED: Oxytocin in LR* 20 UNITS/1,000 ML BAG IVPB SCH (09:00)
[2019-11-14 09:40] LABS: ABS Basophils 0.1 10^3/ul (0-0.2); ABS Eosinophils 0.1 10^3/ul (0-0.6); ABS Lymphocytes 1.5 10^3/ul (1.0-4.8); ABS Monocytes 0.7 10^3/ul (0-0.8); ABS Neutrophils 6.1 10^3/ul (1.5-7.7); Eosinophil % 1.1 %; Hematocrit 32 % (35-47); Lymphocyte % 17.6 %; Mean Corpuscular HGB Conc 35 g/dL (31-36); Mean Corpuscular Hemoglobin 31 pg (27-31); Mean Corpuscular Volume 89 fL (80-97); Mean Platelet Volume 7.9 fL (7.4-10.4); Platelet Count 337 10^3/uL (150-450); Red Blood Count 3.57 10^6 /uL (3.70-4.87); Red Cell Distribution Width 16 % (10-15); White Blood Count 8.4 10^3/uL (3.5-10.8)
[2019-11-14 10:34] LABS: Urine Benzodiazepine Screen None Detected (None Detect); Urine Opiates Screen None Detected (None Detect)
--- NOTE | 2019-11-14 13:15 | PN ---
Progress Note - Progress Note Date of Service: 11/14/19 Note: 29 y/o Para 1 at 39w2d here for IOL, complicated by IUGR, though at last USN EFW was at the 11th%. On arrival cervix was 3cm/50%/-2. Not kathia. Started on Pitocin, Pit is now at 10mU, pt is kathia regularly. Re-examined and now 5cm/70%/-2. AROM'd at ~ 1pm, light meconium. Head well applied. FHT is baseline of 135bpm/moderate/+accels/no decels [place]: q 2-4 ctxn's Continue Pit Re-examine as clinically indicated Enio London, OBGYN
[2019-11-14] MEDS ORDERED: Acetaminophen TAB* 325 MG ONE (14:44)
[2019-11-14] MEDS ORDERED: Acetaminophen TAB* 325 MG PO PRN (14:45)
[2019-11-14] MEDS ORDERED: OBEPIDURAL* 250 ML EPIDURAL ONE (15:35)
--- NOTE | 2019-11-14 15:40 | PN ---
Progress Note - Progress Note Date of Service: 11/14/19 Note: Pt feeling more pressure with contractions. Pitocin has been off as pt wanted to try tub. Now back in bed. Has been using Nitrous for pain. [place] regularly q 2-3 minutes without augmentation. FHT is 140bpm/moderate/+accels/no decels Cervix re-examined at pt request; now 6cm/70/-2 Pt requests epidural. Anesthesia notified. Will re-examine as clinically indicated. Re-start Pitocin if indicated Anticipate vaginal delivery Enio London, DO RUIZ
[2019-11-14] MEDS ORDERED: Famotidine TAB* 20 MG PO PRN (16:37)
[2019-11-14] MEDS ORDERED: EPHEDrine (Pressors)* 50 MG/ML VIAL IV PUSH PRN ×2 (16:37)
[2019-11-14] MEDS ORDERED: Lactated Ringers 1000 ML Bag* 500 ML IV PRN ×2 (16:37)
[2019-11-14] MEDS ORDERED: Phenylephrine 40 MCG/ML SYRINGE IV PUSH PRN ×2 (16:37)
[2019-11-14] MEDS ORDERED: Sodium Citrate/Citric Acid* 15 ML UDC PO PRN (16:37)
[2019-11-14] MEDS ORDERED: OBEPIDURAL* 250 ML EPIDURAL SCH (17:00)
--- NOTE | 2019-11-14 17:16 | PN ---
Progress Note - Progress Note Date of Service: 11/14/19 Note: Pt now comfortable s/p epidural. Cervix is 6cm/70%/-1. FHT baseline 150bpm/moderate/+accels/early decels Ctxn's have spaced out to q 3-5 minutes. Will re-start Pitocin now DO SARA Alvarez
--- NOTE | 2019-11-14 19:20 | PN ---
Progress Note - Progress Note Date of Service: 11/14/19 Note: Pt is an anterior lip now. FHT is 150/moderate/+accels/early decels, no pattern of late or variable. Contractions q 2-3 minutes. Continue Pitocin Anticipate vaginal delivery Enio London, DO RUIZ
[2019-11-14] MEDS ORDERED: Witch Hazel PAD* JAR TOPICAL PRN (20:47)
[2019-11-14] MEDS ORDERED: Glycerin ADULT SUPP PR PRN (20:47)
[2019-11-14] MEDS ORDERED: Dibucaine 1% 28.35 GM TUBE PR PRN (20:47)
--- NOTE | 2019-11-14 20:53 | PROCNOTE ---
[facility] OB: Delivery Note - Delivery A Date of : 11/14/19 Time of : 20:25 Score 1 Minute: 9 Score 5 Minutes: 9 Gestational Age in Weeks and Days at Delivery: 39 Weeks and 2 Days Delivery Method: Spontaneous Vaginal Labor: Induced Did Patient attempt ?: N/A, No Previous Amniotic Fluid: Meconium Estimated Blood Loss: 150 Anesthesia/Analgesia: CEI for Labor Delivered By: Harpreet London JR - Nursery Level of Nursery: Regular/Bedside - Perineum Perineal Injury: None/Intact Perineal Repair: None - Events Delivery Events of Note: Pitocin During Labor - Additional Delivery Notes Additional Delivery Notes: IOL at 39w2d suspected IUGR. Uncomplicated of fetus in NAS with loose nuchal x 3 and body cord that were all delivered through without complication. Cord clamping delayed for several minutes. Placenta delivered spontaneously in tact, no abnormalities, 3 VC. No perineal or vaginal injury or repair indicated. EBL 150ml. Mother and doing well at time of this note. DO SARA Alvarez
[2019-11-14] MEDS ORDERED: Simethicone TAB* 80 MG TAB.CHEW PO SCH (21:00)
[2019-11-14] MEDS: Docusate CAP* 100 MG PO SCH (21:31)
[2019-11-14] MEDS: Ibuprofen TAB* 600 MG PO PRN (21:31)
[2019-11-15] MEDS: Acetaminophen TAB* 325 MG PO PRN ×3 (01:20→15:07)
[2019-11-15] MEDS: Ibuprofen TAB* 600 MG PO PRN ×3 (04:03→18:09)
[2019-11-15 06:49] LABS: ABS Eosinophils 0.1 10^3/ul (0-0.6); ABS Monocytes 0.6 10^3/ul (0-0.8); ABS Neutrophils 7.9 10^3/ul (1.5-7.7); Eosinophil % 0.7 %; Hematocrit 27 % (35-47); Hemoglobin 9.8 g/dL (12.0-16.0); Lymphocyte % 18.5 %; Mean Corpuscular HGB Conc 36 g/dL (31-36); Mean Corpuscular Hemoglobin 32 pg (27-31); Mean Corpuscular Volume 89 fL (80-97); Platelet Count 294 10^3/uL (150-450); Red Blood Count 3.06 10^6 /uL (3.70-4.87); Red Cell Distribution Width 16 % (10-15); White Blood Count 10.6 10^3/uL (3.5-10.8)
[2019-11-15] MEDS: Ferrous Gluconate TAB* 324 MG TAB PO SCH ×2 (07:44→19:31)
[2019-11-15] MEDS: Docusate CAP* 100 MG PO SCH ×3 (07:44→21:00)
[2019-11-15] MEDS: Cetirizine* 10 MG TAB PO SCH (12:24)
[2019-11-16] MEDS: Ibuprofen TAB* 600 MG PO PRN (06:38)
[2019-11-16 08:09] VITALS: BP 116/74
[2019-11-16] MEDS: Ferrous Gluconate TAB* 324 MG TAB PO SCH (08:31)
[2019-11-16] MEDS: Cetirizine* 10 MG TAB PO SCH (08:32)
[2019-11-16] MEDS: Docusate CAP* 100 MG PO SCH (08:32)
== END 2019-11-16 11:10 | disposition home or self-care (01) | DRG 560 ==
LOC: MCHOBOUT 08:05 → MCHOB 08:22
PROVIDERS: ADMIT Obstetrics & Gynecology; ATTEND Obstetrics & Gynecology
PROC: 10E0XZZ Delivery of Products of Conception, External Approach (ICD-10-PCS; principal; 2019-11-14)
PROC: 3E033VJ Introduction of Other Hormone into Peripheral Vein, Percutaneous Approach (ICD-10-PCS; 2019-11-14)
PROC: 10907ZC Drainage of Amniotic Fluid, Therapeutic from Products of Conception, Via Natural or Artificial Opening (ICD-10-PCS; 2019-11-14)
DX: O36.5990 Maternal care for other known or suspected poor fetal growth, unspecified trimester, not applicable or unspecified (principal); Z37.0 Single live birth; O70.0 First degree perineal laceration during delivery; O77.0 Labor and delivery complicated by meconium in amniotic fluid; O69.81X0 Labor and delivery complicated by cord around neck, without compression, not applicable or unspecified; O90.81 Anemia of the puerperium; D64.9 Anemia, unspecified; Z3A.39 39 weeks gestation of pregnancy
CPT/HCPCS: 36415; 80307; 85025; 86850; 86900; 86901; A9270-GY; G0480

== ENCOUNTER 2023-03-01 13:26 | Inpatient (IN) ==
[2023-03-01] MEDS ORDERED: Lactated Ringers 1000 ml BAG 1,000 ML IV ONE (13:50)
[2023-03-01] MEDS ORDERED: Buffered Lidocaine 1% SYRIN 1 ml INTRADERM ONE (13:50)
[2023-03-01] MEDS ORDERED: Oxytocin in LR 20,000 MILLI.UNIT/1,000 ML BAG IV SCH ×2 (14:00→22:00)
[2023-03-01] MEDS ORDERED: Lactated Ringers 1000 ml BAG 1,000 ML IV SCH ×2 (14:00→22:00)
[2023-03-01 15:21] LABS: ABS Basophils 0.1 10^3/uL (0.0-0.1); ABS Eosinophils 0.1 10^3/uL (0.0-0.5); ABS Lymphocytes 1.4 10^3/uL (1.0-4.8); ABS Monocytes 0.4 10^3/uL (0.0-0.9); ABS Neutrophils 5.1 10^3/uL (1.5-7.6); ABS Nucleated RBC 0.01 10^3/ul; Eosinophil % 1.6 %; Hematocrit 30.2 % (35-45); Hemoglobin 10.6 g/dL (11.5-14.3); Lymphocyte % 20.1 %; Mean Corpuscular Hemoglobin 31.6 pg (27-33); Mean Corpuscular Volume 90.3 fL (80-97); Mean Platelet Volume 7.8 fL (7.5-11.2); Nucleated Red Blood Cells % 0.2 /100 WBC (0.0-0.4); Platelet Count 326 10^3/uL (150-450); Red Blood Count 3.34 10^6/uL (3.63-4.92); Red Cell Distribution Width 15.5 % (12-17); White Blood Count 7.1 10^3/uL (3.8-11.8)
[2023-03-01 16:32] LABS: Albumin 3.3 g/dL (3.2-5.2); Albumin/Globulin Ratio 1.2 (1-3); Blood Urea Nitrogen 8 mg/dL (6-24); CO2 Carbon Dioxide 18 mmol/L (22-32); Calcium 8.8 mg/dL (8.6-10.3); Chloride 108 mmol/L (101-111); Creatinine, Serum 0.52 mg/dL (0.51-0.95); Globulin 2.8 g/dL (2-4); Glucose 103 mg/dL (70-100); Sodium 136 mmol/L (135-145); Total Protein 6.1 g/dL (6.4-8.9); eGFR CKD-EPI 127.3 (>60)
[2023-03-01 16:33] LABS: ALT 7 U/L (7-52); Alkaline Phosphatase 107 U/L (35-149); Anion Gap 10 mmol/L (2-16)
[2023-03-01 16:46] LABS: Urine Benzodiazepine Screen None Detected (None Detect); Urine Cannabinoids Screen None Detected (None Detect); Urine Opiates Screen None Detected (None Detect)
[2023-03-01] MEDS ORDERED: Ondansetron 4 mg VIAL 2 MG/ML 2 ml VIAL IV PRN (18:46)
[2023-03-01] MEDS ORDERED: OBEPIDURAL (200 ML) 200 ML EPIDURAL ONE (19:09)
[2023-03-01] MEDS ORDERED: Lidocaine 1.5% EPI 1:200,000 30 ML SDV ONE (19:09)
[2023-03-01 21:50] LABS: Urine Appearance Clear; Urine Bilirubin Negative (Negative); Urine Blood Negative (Negative); Urine Color Yellow; Urine Glucose Negative (Negative); Urine Ketones Negative (Negative); Urine Nitrite Negative (Negative); Urine Protein Negative (Negative); Urine Specific Gravity 1.017 (1.002-1.030); Urine Urobilinogen Negative (Negative)
[2023-03-01] MEDS ORDERED: Dibucaine 1% OINT 28.35 GM TUBE PR PRN (21:57)
[2023-03-01] MEDS ORDERED: Glycerin ADULT 2.4 gm SUPP PR PRN (21:57)
[2023-03-01] MEDS ORDERED: Witch Hazel PAD JAR TOPICAL PRN (21:57)
[2023-03-02 07:00] LABS: ABS Eosinophils 0.1 10^3/uL (0.0-0.5); ABS Lymphocytes 1.9 10^3/uL (1.0-4.8); ABS Monocytes 0.6 10^3/uL (0.0-0.9); ABS Neutrophils 7.6 10^3/uL (1.5-7.6); ABS Nucleated RBC 0.01 10^3/ul; Eosinophil % 0.7 %; Hematocrit 26.6 % (35-45); Hemoglobin 9.3 g/dL (11.5-14.3); Lymphocyte % 18.8 %; Mean Corpuscular Hemoglobin 32.1 pg (27-33); Mean Platelet Volume 7.5 fL (7.5-11.2); Nucleated Red Blood Cells % 0.1 /100 WBC (0.0-0.4); Platelet Count 273 10^3/uL (150-450); Red Blood Count 2.89 10^6/uL (3.63-4.92); Red Cell Distribution Width 15.5 % (12-17); White Blood Count 10.2 10^3/uL (3.8-11.8)
[2023-03-02] MEDS ORDERED: Insulin NPH 100 units/ml SUBCUT SCH (21:00)
[2023-03-03 10:21] VITALS: BP 115/63
== END 2023-03-03 11:02 | disposition home or self-care (01) | DRG 560 ==
LOC: MCHOBOUT 13:26 → MCHOB 14:06
PROVIDERS: ADMIT Obstetrics & Gynecology; ATTEND Obstetrics & Gynecology